=== PATIENT | female | born 2000 | race Hispanic/Latino ===

== ENCOUNTER 2022-08-19 12:03 | Emergency (ER) | payer OTHER ==
[~2022-08-19] VITALS: Ht 160 cm; Wt 77.1 kg
[2022-08-19] MEDS ORDERED: IBUPROFEN 800 MG TAB PO ONE (12:30)
[2022-08-19] MEDS ORDERED: IBUP-2071 PO (13:20)
[2022-08-19 13:39] VITALS: BP 122/74
== END 2022-08-19 13:43 | disposition home or self-care (01) ==
LOC: EDH 12:03
DX: S83.92XA Sprain of unspecified site of left knee, initial encounter (principal); Z79.1 Long term (current) use of non-steroidal anti-inflammatories (NSAID); E66.9 Obesity, unspecified; Z68.30 Body mass index [BMI] 30.0-30.9, adult; W18.39XA Other fall on same level, initial encounter; Y93.89 Activity, other specified; Y92.89 Other specified places as the place of occurrence of the external cause; Y99.8 Other external cause status
CPT/HCPCS: 29505; 73562